=== PATIENT | male | born 1995 | race African-American/Black ===

== ENCOUNTER 2022-07-16 20:05 | Emergency (ER) | payer MEDICAID ==
[~2022-07-16] VITALS: Ht 180.3 cm; Wt 122.0 kg
[2022-07-16 20:18] VITALS: BP 131/78
[2022-07-17] MEDS ORDERED: PENI500T MT (01:08)
== END 2022-07-17 02:00 | disposition home or self-care (01) ==
LOC: ER 20:05
DX: J02.9 Acute pharyngitis, unspecified (principal)
CPT/HCPCS: 99281

== ENCOUNTER 2023-12-15 15:14 | Emergency (ER) | payer SELFPAY ==
[~2023-12-15] VITALS: Ht 170.2 cm; Wt 86.2 kg
[~2023-12-15 15:14] MED LIST: PENI500T MT
[2023-12-15 15:22] VITALS: O2SAT 100
[2023-12-15 16:12] LABS: BASOPHILS % 0.9 % (0.0-2.0); DIFFERENTIAL COMMENT 0; EOSINOPHILS % 2.1 % (0.0-5.0); HEMATOCRIT. 45.5 % (42.0-52.0); HEMOGLOBIN. 15.3 g/dL (14.0-18.0); LYMPHOCYTES % 40.5 % (20.0-50.0); MEAN CORPUSCULAR HEMOGLOBIN 28.6 pg (28.0-32.0); MEAN CORPUSCULAR HGB CONC 33.7 g/dL (31.0-37.0); MEAN CORPUSCULAR VOLUME 84.8 fL (80.0-94.0); MEAN PLATELET VOLUME 9.4 fl (7.4-10.4); MONOCYTES % 6.8 % (2.0-8.0); NEUTROPHILS % 49.7 % (40.0-76.0); PLATELET 284 x1000/uL (130-400); RED BLOOD CELL COUNT 5.37 mill/uL (4.7-6.1); RED CELL DISTRIBUTION WIDTH 13.9 % (11.6-14.6); WHITE BLOOD COUNT 5.6 x1000/uL (4.5-11.0)
[2023-12-15 16:27] LABS: ALANINE AMINOTRANSFERASE 79 IU/L (10-49); ASPARTATE AMINOTRANSFERASE 56 IU/L (<34); BILIRUBIN TOTAL 0.5 mg/dL (0.1-1.0); CALCIUM 9.7 mg/dL (8.7-10.4); CARBON DIOXIDE 27 mEq/L (21-32); CHLORIDE 102 mEq/L (98-107); GLUCOSE 113 mg/dL (70-105); POTASSIUM 4.3 mEq/L (3.5-5.1); PROTEIN TOTAL 8.7 g/dL (6.0-8.3); SODIUM 137 mEq/L (136-145); UREA NITROGEN BLOOD 8 mg/dL (9-23)
[2023-12-15] MEDS ORDERED: DICYCLOMINE 10 MG/5 ML ORAL SYR PO STA (16:42)
[2023-12-15] MEDS: ONDANSETRON 4MG ODT PO STA (17:17)
[2023-12-15] MEDS: DICYCLOMINE HCL 10MG CAPSULE PO NR (17:17)
[2023-12-15] MEDS: MAGNESIUM/ALUMINUM HYDROXIDE/SIMETHICONE 30ML UDC PO STA (17:17)
[2023-12-15] MEDS: FAMOTIDINE 20MG TABLET PO ONE (17:17)
[2023-12-15] MEDS ORDERED: FAMO-135 MT (17:57)
[2023-12-15 18:43] VITALS: BP 147/82; PULSE 85; RESP 18; TEMP 98.1
== END 2023-12-15 18:46 | disposition home or self-care (01) ==
LOC: ER 15:14
DX: K29.70 Gastritis, unspecified, without bleeding (principal); R16.0 Hepatomegaly, not elsewhere classified
CPT/HCPCS: 99285; 74176; 71045; 80053; 85025; 36415; 93005; Q0162